=== PATIENT | female | born 1965 | race Caucasian/White ===

== ENCOUNTER → 2018-05-11 | Outpatient (CLI) | payer BC ==
--- NOTE | 2018-05-11 11:53 | XR ---
EXAMINATION TYPE: XR ankle limited LT DATE OF EXAM: 05/11/2018 COMPARISON: NONE HISTORY: Spontaneous rupture of flexor tendons TECHNIQUE: Three-view left ankle FINDINGS: Ankle mortise is intact as visualized. Secondary ossification centers are inferior to the m edial malleolus. There is a tiny ossification inferior to the lateral malleolus, likely an additional secondary ossification center. Avulsion is considered less likely. Soft tissues appear normal. No ac tejon fractures are evident. Calcaneal heel spurs are present. IMPRESSION: 1. No acute osseous abnormality radiographically apparent. If Additional evaluation of the tendons a nd ligaments would be of benefit, MRI can be performed.
--- NOTE | 2018-05-11 11:54 | XR ---
EXAMINATION TYPE: XR foot complete LT DATE OF EXAM: 05/11/2018 COMPARISON: NONE HISTORY: Check on Wednesday, pain TECHNIQUE: Three-view left foot FINDINGS: No acute fractures are evident. Joint spaces are preserved. Soft tissues appear normal. Jens caneal heel spurs are present. Follow-up exams can be performed 7-10 days from acute trauma for continued pain. IMPRESSION: 1. No acute osseous abnormality left foot.
== END | disposition home or self-care (01) ==
LOC: RADXRMAIN 09:36
PROVIDERS: ATTEND Podiatrist Foot Surgery
DX: M66.372 Spontaneous rupture of flexor tendons, left ankle and foot (principal); M79.672 Pain in left foot

== ENCOUNTER → 2020-04-10 | Outpatient (CLI) | payer BC ==
--- NOTE | 2020-04-10 08:58 | CT ---
EXAMINATION TYPE: CT brain wo con DATE OF EXAM: 04/10/2020 COMPARISON: NONE HISTORY: Headache and neck pain without injury. Episodes of syncope CT DLP: 1230 mGycm. Automated Exposure Control for Dose Reduction was Utilized. TECHNIQUE: CT scan of the head is performed without contrast. FINDINGS: There is no acute intracranial hemorrhage, mass effect, or midline shift identified. The re is diffuse ventricular and sulcal prominence consistent with diffuse age-related cerebral atrophy. Prominent perivascular spaces noted inferior to the right lentiform nucleus on image 23. The globes are intact and the visualized sinuses are clear. Brainstem, particularly the siena is limited by the dense skull base resultant spray artifact. IMPRESSION: No acute intracranial hemorrhage, mass effect, or midline shift is seen. If there is fur ther clinical concern MRI would be better suited to evaluate for white matter changes.
== END | disposition home or self-care (01) ==
LOC: RADCTMAIN 08:08
PROVIDERS: ATTEND Family Medicine
DX: R55 Syncope and collapse (principal)
CPT/HCPCS: 70450

== ENCOUNTER → 2020-05-22 | Outpatient (CLI) | payer BC ==
--- NOTE | 2020-05-22 12:36 | US ---
EXAMINATION TYPE: US carotid duplex BILAT DATE OF EXAM: 05/22/2020 COMPARISON: NONE CLINICAL HISTORY: Dizziness. EXAM MEASUREMENTS: RIGHT: Peak Systolic Velocity (PSV) cm/sec ----- Right CCA: 117.1 ----- Right ICA: 104.0 ----- Right ECA: 124.4 ICA/CCA ratio: 0.9 RIGHT: End Diastole cm/sec ----- Right CCA: 40.1 ----- Right ICA: 29.9 ----- Right ECA: 21.2 LEFT: Peak Systolic Velocity (PSV) cm/sec ----- Left CCA: 125.3 ----- Left ICA: 104.8 ----- Left ECA: 73.6 ICA/CCA ratio: 0.8 LEFT: End Diastole cm/sec ----- Left CCA: 43.0 ----- Left ICA: 35.4 ----- Left ECA: 21.9 VERTEBRALS (direction of flow): Right Vertebral: Antegrade Left Vertebral: Antegrade Rhythm: Normal IMPRESSION: Minimal amount of plaque visualized, no elevated velocities, no significant stenosis Criteria for Assigning % of Stenosis / Diameter reduction (Estimation based on the indirect measurements of the internal carotid artery velocities (ICA PSV). 1. Normal (no stenosis)=ICA PSV < 125 cm/s: ratio < 2.0: ICA EDV<40 cm/s. 2. Less than 50% stenosis=ICA PSV < 125 cm/s: ratio < 2.0: ICA EDV<40 cm/s. 3. 50 to 69% stenosis=ICA PSV of 125 to 230 cm/s: ration 2.0 ? 4.0: ICA EDV 40-100 cm/s. 4. Greater than 70% stenosis to near occlusion= ICA PSV > 230 cm/s: ratio > 4.0: ICA EDV > 100 cm/s. 5. Near occlusion= ICA PSV velocities may be low or undetectable: variable ratio and ICA EDV. 6. Total occlusion=unable to detect flow.
== END | disposition home or self-care (01) ==
LOC: RADUSWWP 12:09
PROVIDERS: ATTEND Psychiatry & Neurology Neurology
DX: R55 Syncope and collapse (principal)
CPT/HCPCS: 93880

== ENCOUNTER → 2022-03-12 | Outpatient (CLI) | payer BC ==
--- NOTE | 2022-03-13 13:38 | MM ---
Reason for exam: screening (asymptomatic). Last mammogram was performed 10 years and 9 months ago. History: Patient is postmenopausal and is nulliparous. Family history of premenopausal breast cancer in maternal grandmother at age 40. Physical Findings: A clinical breast exam by your physician is recommended on an annual basis and results should be correlated with mammographic findings. MG 3D Screening Mammo W/Cad Bilateral CC and MLO view(s) were taken. Prior study comparison: June 19, 2011, bilateral digital screening mammo w/CAD. March 21, 2008, bilateral digital screening mammogram. There are scattered fibroglandular densities. No significant changes when compared with prior studies. ASSESSMENT: Benign, BI-RAD 2 RECOMMENDATION: Routine screening mammogram of both breasts in 1 year.
== END | disposition home or self-care (01) ==
LOC: RADMAMWWP 07:49
PROVIDERS: ATTEND Family Medicine
DX: Z12.31 Encounter for screening mammogram for malignant neoplasm of breast (principal); Z80.3 Family history of malignant neoplasm of breast; Z78.0 Asymptomatic menopausal state
CPT/HCPCS: 77063; 77067

== ENCOUNTER 2024-03-10 07:19 | Inpatient (IN) | payer BC ==
[2024-03-10] MEDS ORDERED: NALOXONE 0.4 MG/ML 1 ML VIAL IV PRN (07:41)
[2024-03-10] MEDS: HEPARIN SODIUM 1,000 UN/ML (10ML VL) IV ONE (07:45)
[2024-03-10] MEDS: ASPIRIN 81 MG PO STA (07:46)
[2024-03-10] MEDS: SODIUM CHLORIDE 0.9% 1,000 ML IV STA (07:46)
[2024-03-10] MEDS: ATORVASTATIN 80 MG TAB PO STA (07:46)
[2024-03-10] MEDS: IV FLUID CONTINUATION 1,000 ML IV ONE (07:50)
--- NOTE | 2024-03-10 07:51 | ED ---
General Adult HPI - General Chief complaint: Chest Pain Stated complaint: Chest pains Time Seen by Provider: 03/10/24 07:26 Source: patient, RN notes reviewed, old records reviewed Mode of arrival: ambulatory Limitations: no limitations - History of Present Illness Initial comments: 58-year-old female presenting with central chest pain and pressure which began approximately 2 hours prior to arrival. Patient has history of hypertension, diabetes and is a current smoker. Pain radiates to her bilateral shoulders and upper back. She had an episode of nausea and vomiting. - Related Data Allergies Allergy/AdvReac Type Severity Reaction Status Date / Time No Known Allergies Allergy Verified 03/10/24 07:29 Review of Systems ROS Statement: Those systems with pertinent positive or pertinent negative responses have been documented in the HPI. ROS Other: All systems not noted in ROS Statement are negative. Past Medical History Past Medical History: Diabetes Mellitus, Hyperlipidemia, Hypertension Past Surgical History: No Surgical Hx Reported Past Psychological History: Depression Smoking Status: Current every day smoker Past Alcohol Use History: None Reported Past Drug Use History: None Reported General Exam Limitations: no limitations General appearance: alert, in no apparent distress Head exam: Present: atraumatic, normocephalic Eye exam: Present: normal appearance, PERRL ENT exam: Present: normal exam Neck exam: Present: normal inspection Respiratory exam: Present: normal lung sounds bilaterally. Absent: respiratory distress, wheezes Cardiovascular Exam: Present: regular rate, normal rhythm GI/Abdominal exam: Present: soft. Absent: distended, tenderness, guarding Neurological exam: Present: alert, oriented X3 Psychiatric exam: Present: anxious Skin exam: Present: diaphoretic, pallor Course Vital Signs 03/10/24 03/10/24 07:26 07:36 Temperature 98 F Pulse Rate 55 L Pulse Rate [ 56 L Cable Systems Installer ] Respiratory 18 Rate Blood Pressure 102/78 O2 Sat by Pulse 98 Oximetry Medical Decision Making - Medical Decision Making Was pt. sent in by a medical professional or institution (, PA, COMMERCIAL REPRESENTATIVE, urgent care, hospital, or [facility]...) When possible be specific @ -No Did you speak to anyone other than the patient for history (EMS, parent, family, police, friend...)? What history was obtained from this source @ -No Did you review nursing and triage notes (agree or disagree)? Why? @ -I reviewed and agree with nursing and triage notes Were old charts reviewed (outside hosp., previous admission, EMS record, old EKG, old radiological studies, urgent care reports/EKG's, [facility] records)? Report findings @ -No old charts were reviewed Differential Diagnosis differential Chest Pain: Stable Angina, Unstable Angina, STEMI, NSTEMI Aortic Dissection, Pneumothorax, Musculoskeletal, Esophageal Spasm GERD, Cholecystitis, Pancreatitis, Zoster, this is not meant to be an all-inclusive list. EKG interpreted by me (3pts min.). @EKG: Sinus rhythm rate of 60, CT interval 144, QRS duration 98, QTc 444, ST segment elevation in the inferior leads with reciprocal change in aVL and V2. X-rays interpreted by me (1pt min.). @ -None done CT interpreted by me (1pt min.). @ -None done U/S interpreted by me (1pt. min.). @ -None done What testing was considered but not performed or refused? (CT, X-rays, U/S, labs)? Why? @ -None What meds were considered but not given or refused? Why? @ -None Did you discuss the management of the patient with other professionals (professionals i.e. , PA, COMMERCIAL REPRESENTATIVE, lab, RT, psych nurse, social science instructor, test engineering manager, teacher, forest officer, case aide)? Give summary @ -Case discussed with Dr. Fulton covering for cardiology will take patient to Bank Teller Machine Mechanic with ST segment elevated [place]. Was smoking cessation discussed for >3mins.? @ -No Was critical care preformed (if so, how long)? @Yes, 35 minutes Were there social determinants of health that impacted care today? How? (Homelessness, low income, unemployed, alcoholism, drug addiction, transp ortation, low edu. Level, literacy, decrease access to med. care, alf, rehab)? @ -No Was there de-escalation of care discussed even if they declined (Discuss DNR or withdrawal of care, Hospice)? DNR status @ -No What co-morbidities impacted this encounter? (DM, HTN, Smoking, COPD, CAD, Cancer, CVA, ARF, Chemo, Hep., AIDS, mental health diagnosis, sleep apnea, morbid obesity)? @ -Hypertension, diabetes, current smoker Was patient admitted / discharged? Hospital course, mention meds given and route, prescriptions, significant lab abnormalities, going to OR and other pertinent info. @ -58-year-old female presenting with chest pain over the past 2 hours with typical features including nausea vomiting, diaphoresis, radiation. No prior history of CAD. Patient's EKG is consistent with acute AZ, ST segment elevation in the inferior leads with reciprocal change. Bank Teller Machine Mechanic was activated. Patient was given aspirin, heparin, Lipitor and 1 L fluid bolus in the emergency department. She was taken urgently to [facility] Teller Machine Mechanic for intervention. The admitting physician has been paged. Undiagnosed new problem with uncertain prognosis? @ -No Drug Therapy requiring intensive monitoring for toxicity (Heparin, Nitro, Insulin, Cardizem)? @ -No Were any procedures done? @ -No Diagnosis/symptom? @ ST segment elevated [place] Acute, or Chronic, or Acute on Chronic? @ -Acute Uncomplicated (without systemic symptoms) or Complicated (systemic symptoms)? @Complicated Side effects of treatment? @ -No Exacerbation, Progression, or Severe Exacerbation? @ -No Poses a threat to life or bodily function? How? (Chest pain, USA, AZ, pneumonia, PE, COPD, DKA, ARF, appy, cholecystitis, CVA, Diverticulitis, Homicidal, Suicidal, threat to staff... and all critical care pts) @ -[Yes, ACS Critical Care Time Critical Care Time: Yes Total Critical Care Time: 35 Disposition Clinical Impression: ST elevation myocardial infarction (STEMI) Disposition: ADMITTED IP TO THIS HOSP Condition: Serious Is patient prescribed a controlled substance at d/c from ED?: No Referrals: Latha Lundy MD [Primary Care Provider] - 1-2 days Time of Disposition: 07:42
[2024-03-10 08:00] LABS: Basophils % (A) 0 %; Eosinophils # (A) 0.1 k/uL (0-0.7); Eosinophils % (A) 1 %; HCT 52.5 % (34.0-46.0); HGB 17.2 gm/dL (11.4-16.0); Lymphocytes # (A) 3.1 k/uL (1.0-4.8); Lymphocytes % (A) 25 %; MCH 29.5 pg (25.0-35.0); MCHC 32.8 g/dL (31.0-37.0); Mean Platelet Volume 7.6; Monocytes # (A) 0.5 k/uL (0-1.0); Monocytes % (A) 4 %; Neutrophils # (A) 8.5 k/uL (1.3-7.7); Neutrophils % (A) 68 %; Platelet Count 334 k/uL (150-450); RBC 5.83 m/uL (3.80-5.40); RDW 13.5 % (11.5-15.5); WBC 12.6 k/uL (3.8-10.6)
[2024-03-10] MEDS: MIDAZOLAM 2 MG/2 ML VIAL IVP ONE (08:00)
[2024-03-10] MEDS: LIDOCAINE 1% INJ 10MG/ML (20 ML MDV) SQ ONE (08:03)
[2024-03-10] MEDS: VERAPAMIL SYRINGE (5 MG/10 ML) INTRAARTER ONE (08:04)
[2024-03-10] MEDS: HEPARIN SODIUM 1,000 UN/ML (10ML VL) IVP ONE (08:13)
[2024-03-10] MEDS: TICAGRELOR 90 MG TAB PO ONE (08:13)
[2024-03-10] MEDS ORDERED: TICAGRELOR 90 MG TAB ONE (08:13)
[2024-03-10 08:16] LABS: INR 0.9 (<1.2); Partial Thromboplastin Time 23.1 sec (22.0-30.0); Prothrombin Time 10.1 sec (10.0-12.5)
[2024-03-10 08:17] LABS: ALT 36 U/L (4-34); AST 37 U/L (14-36); African American GFR (CKD) >90 (>60 ml/min/1.73 sqM); Albumin 4.3 g/dL (3.5-5.0); Alkaline Phosphatase 111 U/L (38-126); Anion Gap 8 mmol/L; Blood Urea Nitrogen 17 mg/dL (7-17); Calcium 9.5 mg/dL (8.4-10.2); Carbon Dioxide 27 mmol/L (22-30); Chloride 105 mmol/L (98-107); Glucose 151 mg/dL (74-99); Magnesium 1.8 mg/dL (1.6-2.3); Non-African American GFR(CKD) 85 (>60 ml/min/1.73 sqM); Potassium 3.9 mmol/L (3.5-5.1); Sodium 140 mmol/L (137-145); Total Bilirubin 0.7 mg/dL (0.2-1.3); Total Protein 7.3 g/dL (6.3-8.2)
[2024-03-10] MEDS: NITROGLYCERIN 1000MCG/10ML SYRINGE INTRACORON ONE (08:21)
[2024-03-10] MEDS: PHENYLEPHRINE-0.9% NACL SYG 1,000 MCG/10 ML SYRINGE IVP ONE (08:30)
[2024-03-10] MEDS: IOPAMIDOL-370 100ML BTL INJ ONE (08:33)
[2024-03-10] MEDS ORDERED: RX INFO: IV CONTRAST WAS GIVEN 1 EACH MISC MISCELLANE PRN (08:39)
[2024-03-10] MEDS ORDERED: ATROPINE SULFATE 0.1 MG/ML 10ML SYRINGE IV PRN (08:39)
[2024-03-10] MEDS ORDERED: NITROGLYCERIN SL TABS 0.4 MG TAB SUBLINGUAL PRN (08:39)
[2024-03-10] MEDS ORDERED: MAG HYDROX/AL HYDROX/SIMETH 30 ML CUP PO PRN (08:39)
[2024-03-10] MEDS ORDERED: ZOLPIDEM 5 MG TAB PO PRN (08:39)
--- NOTE | 2024-03-10 08:45 | P.PCN ---
Date of Procedure: 03/10/24 Operative Findings: CARDIAC CATHETERIZATION AND PERCUTANEOUS CORONARY INTERVENTION PERFORMING PHYSICIAN: Nathanael Fulton MD, VI PROCEDURE PERFORMED: 1. Selective right and left coronary angiogram 2. Left heart catheterization 3. Successful stenting of mid RCA using 3.5 x 38 mm Xience ARCHIE with an excel lent angiographic results with adjunctive use of intravascular imaging 4. Ultrasound-guided access of the right radial artery INDICATION: Acute inferior ST elevation myocardial infarction COMPLICATION: None APPROACH: Right radial artery LEVEL OF SEDATION: Moderate with the sedation time off 38 minutes PROCEDURE DESCRIPTION: After obtaining informed consent the patient was brought to the cardiac Hull And Deck Remover. The right radial artery was cannulated using micropuncture technique under ultrasound guidance and micropuncture wire passed easily then I placed a 6 Egyptian 11 cm sheath at the right radial artery. Subsequently anticoagulation was initiated using heparin with continuous ACT monitoring. Selective left and right coronary angiogram performed using JL 3.5 diagnostic catheter and JR4 g uiding catheter. After that I did intervene on the right coronary artery. I did left heart catheterization using a pigtail catheter. At that point we decided to intervene on the RCA. The RCA was wired using a run-through wire. It was dilated using 3.5 mm balloon. Subsequently I did intravascular ultrasound which showed a diameter distally about 3.5 and proximal about 4.0 with a soft plaque. I deployed 3.5 x 38 mm stent and subsequently postdilated using 4 mm noncompliant balloon after intravascular ultrasound performed. Final angiogram showed excellent angiographic results and the proce dure was completed with no complication SELECTIVE CORONARY ANGIOGRAM: The right coronary artery: Large-caliber vessel and a dominant vessel and subtotally occluded in the midportion with a plaque rupture and thrombus formation Left main: Is angiographically normal with bifurcates into an LCx and LAD The left circumflex: Large-caliber vessel and a codominant vessel. The LCx is angiographically normal. Gives rise into first and second obtuse marginal branches and distally gives PDA as well The left anterior descending artery: The LAD is a large-caliber vessel. The LAD has mild disease only. Gives rise into multiple diagonal branches appear to be angiographically normal HEMODYNAMICS: The LVEDP was 15 mmHg with no significant gradient across aortic valve CONCLUSION: Acute subtotal occlusion of the mid RCA secondary to plaque rupture. I did perform successful stenting of the RCA as described above Mild disease involving the left coronary system Normal left-sided filling pressure POSTPROCEDURE MANAGEMENT: 1. Dual antiplatelet therapy using aspirin and Brilinta for 12 month 2. Aggressive cholesterol control 3. Follow-up with the patient
--- NOTE | 2024-03-10 08:47 | P.CRDCN ---
History of Present Illness Consult date: 03/10/24 Chief complaint: Chest pain History of present illness: The patient is a 58-year-old female patient with a past medical history significant for overweight and borderline diabetes and hypertension and dyslipidemia and smoking presented to the emergency department with chest discomfort started within the last 12 hours. The discomfort was in the middle of the chest as a pressure/dull feeling with no radiation. It was associated with shortness of breath and sweating. She presented to the emergency department where an EKG was performed and showed an acute inferior ST deviation myocardial infarction. Subsequently she underwent an emergent heart catheterization and that revealed mild disease involving the left coronary system was plaque rupture involving the mid RCA. She underwent successful stenting of the RCA. By the end of the procedure the ST changes resolved and the patient was chest pain-free which she was hemodynamically stable which she tolerated the procedure very well. She will be admitted to the intensive care unit. She will be on dual antiplatelet therapy along with high intensity statin along with beta-mary. We will obtain an echocardiogram to assess ejection fraction. Examination reveals stable vital signs with soft blood pressure overall and clear breathing sounds bilaterally and regular rate and rhythm with a soft systolic murmur and somewhat distant heart sounds and no lower extremities edema was noted Assessment Acute inferior ST ovation myocardial infarction Status post PCI of the RCA Multiple comorbid conditions including borderline diabetes and hypertension and dyslipidemia and smoking Plan Continue the current medical regimen including dual antiplatelet therapy Smoking cessation Obtain an echocardiogram with Doppler ICU monitoring Further recommendation to follow Past Medical History Past Medical History: Diabetes Mellitus, Hyperlipidemia, Hypertension Past Surgical History: No Surgical Hx Reported Past Psychological History: Depression Smoking Status: Current every day smoker Past Alcohol Use History: None Reported Past Drug Use History: None Reported Medications and Allergies Allergies Allergy/AdvReac Type Severity Reaction Status Date / Time No Known Allergies Allergy Verified 03/10/24 07:29 Physical Exam Vitals: Vital Signs Temp Pulse Pulse Resp BP Pulse Ox 03/10/24 07:36 56 L 03/10/24 07:26 98 F 55 L 18 102/78 98 Intake and Output 03/09/24 03/10/24 03/10/24 22:59 06:59 14:59 Intake Total 400 Balance 400 Intake: IV 400 Other: Weight 106.594 kg Results 03/10/24 07:48 03/10/24 07:48 Cardiac Enzymes 03/10/24 03/10/24 Range/Units 07:48 07:48 AST 37 H (14-36) U/L Troponin I 0.278 H* (0.000-0.034) ng/mL Coagulation 03/10/24 Range/Units 07:48 PT 10.1 (10.0-12.5) sec APTT 23.1 (22.0-30.0) sec CBC 03/10/24 Range/Units 07:48 WBC 12.6 H (3.8-10.6) k/uL RBC 5.83 H (3.80-5.40) m/uL Hgb 17.2 H (11.4-16.0) gm/dL Hct 52.5 H (34.0-46.0) % Plt Count 334 (150-450) k/uL Comprehensive Metabolic Panel 03/10/24 Range/Units 07:48 Sodium 140 (137-145) mmol/L Potassium 3.9 (3.5-5.1) mmol/L Chloride 105 (98-107) mmol/L Carbon Dioxide 27 (22-30) mmol/L BUN 17 (7-17) mg/dL Creatinine 0.77 (0.52-1.04) mg/dL Glucose 151 H (74-99) mg/dL Calcium 9.5 (8.4-10.2) mg/dL AST 37 H (14-36) U/L ALT 36 H (4-34) U/L Alkaline Phosphatase 111 (38-126) U/L Total Protein 7.3 (6.3-8.2) g/dL Albumin 4.3 (3.5-5.0) g/dL Current Medications Generic Name Dose Route Start Last Admin Trade Name Freq PRN Reason Stop Dose Admin Al Hydroxide/Mg Hydroxide 30 ml 03/10/24 08:39 Mag Hydrox/Al Hydrox/Simeth 30 Ml Cup PO Q4HR PRN Heartburn Aspirin 81 mg 03/10/24 09:00 Aspirin 81 Mg PO DAILY BOO Atorvastatin Calcium 80 mg 03/10/24 21:00 Atorvastatin 80 Mg Tab PO HS BOO Atropine Sulfate 0.5 mg 03/10/24 08:39 Atropine Sulfate 0.1 Mg/Ml 10ml Syringe IV ONCE PRN Symptomatic Bradycardia Sodium Chloride 1,000 ml/ IV 1,000 mls @ 75 mls/hr 03/10/24 08:45 Solution IV 03/10/24 13:46 .[id number] [facility] Metoprolol Tartrate 25 mg 03/10/24 09:00 Metoprolol Tartrate 25 Mg Tab PO BID [facility] Miscellaneous Information 1 each 03/10/24 08:39 Rx Info: Iv Contrast Was Given 1 Each Misc MISCELLANE 03/12/24 08:39 DAILY PRN Per Protocol Naloxone HCl 0.2 mg 03/10/24 07:41 Naloxone 0.4 Mg/Ml 1 Ml Vial IV Q2M PRN Opioid Reversal Nitroglycerin 0.4 mg 03/10/24 08:39 Nitroglycerin Sl Tabs 0.4 Mg Tab SUBLINGUAL Q5M PRN Chest Pain Ticagrelor 90 mg 03/10/24 09:00 Ticagrelor 90 Mg Tab PO BID [facility] Protocol Zolpidem Tartrate 5 mg 03/10/24 08:39 Zolpidem 5 Mg Tab PO HS PRN Insomnia Intake and Output 03/09/24 03/10/24 03/10/24 22:59 06:59 14:59 Intake Total 400 Balance 400 Intake: IV 400 Other: Weight 106.594 kg Patient Weight 03/11/24 06:59 Weight 106.594 kg 03/10/24 07:48 03/10/24 07:48
[2024-03-10] MEDS: TICAGRELOR 90 MG TAB PO SCH (08:49)
[2024-03-10] MEDS: ASPIRIN 81 MG PO SCH (10:04)
[2024-03-10] MEDS: SODIUM CHLORIDE 0.9% 1,000 ML in EMPTY BAG 1 BAG IV SCH (10:04)
[2024-03-10] MEDS: METOPROLOL TARTRATE 25 MG TAB PO SCH (10:09)
[2024-03-10] MEDS ORDERED: ALPRAZolam 0.5 MG TAB PO PRN (11:26)
[2024-03-10] MEDS ORDERED: DEXTROSE 50% SYRINGE 50 ML IVP PRN ×2 (11:26)
[2024-03-10] MEDS: busPIRone HCl 5 MG TAB PO SCH (12:15)
[2024-03-10] MEDS: PANTOPRAZOLE 40 MG TABLET PO SCH (12:15)
[2024-03-10] MEDS: VORTIOXETINE HYDROBROMIDE 20 MG TABLET PO SCH (12:15)
[2024-03-10 12:27] LABS: Glucose,Whole Blood 199 mg/dL (70-110)
[2024-03-10] MEDS: INSULIN ASPART (NovoLOG) 100 UNIT/ML VIAL SQ SCH (12:33)
--- NOTE | 2024-03-10 12:54 | HP ---
HISTORY AND PHYSICAL CHIEF COMPLAINT: Chest pain. HISTORY OF PRESENT ILLNESS: This is a 58-year-old woman with a past medical history of hypertension, diabetes, was admitted with chest pain this morning. The patient was found to have hyperacute inferior wall myocardial infarction, patient underwent cardiac catheterization and stenting of the RCA. There is no history of any fever, rigors, or chills. The patient is closely monitored in ICU. A 2D echo has been done. The patient is on dual antiplatelet treatment. There is no history of any fever, rigors, or chills. PAST MEDICAL HISTORY: Reviewed include diabetes mellitus, hypertension, hyperlipidemia, rest of the history and rest of the chart is also reviewed. HOME MEDICATIONS: BuSpar, doses and rest of medications reviewed. ALLERGIES: None. FAMILY HISTORY: No history of heart disease or strokes in the family. SOCIAL HISTORY: Current smoking. No history of alcohol intake. REVIEW OF SYSTEMS: A 14-point review is negative except as mentioned. PHYSICAL EXAMINATION: VITAL SIGNS: Pulse is 81, blood pressure 142/101, respirations 11. HEENT: Conjunctivae normal. NECK: No jugular venous distention. CARDIOVASCULAR: S1, S2. RESPIRATIONS: Diminished at the basis. No rhonchi, no crackles. ABDOMEN: Soft, nontender. LEGS: No edema, no swelling SKIN: No ulcer, rash, bleeding. JOINTS: No active deforming arthropathy. LABS: Complete 12.6, hemoglobin 17.2. Troponin 0.278. ASSESSMENT: 1. Hyperacute inferior wall myocardial infarction, status post cardiac arrest and stenting of the RCA. 2. Troponin 0.278. 3. Increased WBC. 4. Diabetes mellitus type 2. 5. Hypertension. 6. Hyperlipidemia. 7. History of nicotine dependence. 8. Polycythemia. RECOMMENDATIONS: This 58-year-old woman presented with multiple complex medical issues, we will monitor the patient closely. I will recommend continue the current medications. The patient is started on beta blockers, otherwise, Lipitor, dual antiplatelet treatment. DVT prophylaxis. Closely follow with Cardiology. Guarded prognosis because of multiple complex medical issues. We will resume the home medications. Monitor blood sugars also closely. Further recommendations to follow. MMODL / IJN: [id number] /
--- NOTE | 2024-03-10 12:59 | XR ---
EXAMINATION TYPE: XR chest 1V portable DATE OF EXAM: 03/10/2024 COMPARISON: None INDICATION: CHF TECHNIQUE: Single frontal view of the chest is obtained. FINDINGS: The heart size is normal. The pulmonary vasculature is normal. The lungs are clear. IMPRESSION: 1. No acute pulmonary process.
[2024-03-10 16:07] LABS: Appearance,Urine Clear (Clear); Bilirubin,Urine Negative (Negative); Blood,Urine Negative (Negative); Color,Urine Colorless; Glucose,Urine (UA) Negative (Negative); Ketones,Urine Negative (Negative); Leukocyte Esterase,Urine Negative (Negative); Nitrite,Urine Negative (Negative); Protein,Urine Negative (Negative); Urobilinogen,Urine <2.0 mg/dL (<2.0)
[2024-03-10 16:56] LABS: Glucose,Whole Blood 127 mg/dL (70-110)
--- NOTE | 2024-03-10 17:36 | CA ---
Transthoracic Echo Report Name: Sofi Stinson Age: 58 Gender: F : 1965 Exam Date: 03/10/2024 11:54 Exam Location: [place] [facility] Ht (in): 64 Wt (lb): 235 Ordering Physician: Nathanael Fulton MD ([id number]) Attending/Referring Phys: Regional Operations Director Rosa M Cee RCS Procedure CPT: Indications: stemi Cardiac Hx: Technical Quality: Technically difficult study Contrast 1: Definity Total Dose (mL): 2 Contrast 2: Total Dose (mL): MEASUREMENTS (Male / Female) Normal Values 2D ECHO LV Diastolic Diameter PLAX 4.7 cm 4.2 - 5.9 / 3.9 - 5.3 cm LV Systolic Diameter PLAX 3.4 cm IVS Diastolic Thickness 0.9 cm 0.6 - 1.0 / 0.6 - 0.9 cm LVPW Diastolic Thickness 1.0 cm 0.6 - 1.0 / 0.6 - 0.9 cm LV Relative Wall Thickness 0.4 RV Internal Dim ED PLAX 2.5 cm LVOT Diameter 2.1 cm LV Diastolic Volume MOD BP 93.2 cm??? 67 - 155 / 56 - 104 cm??? LV Systolic Volume MOD BP 30.3 cm??? 22 - 58 / 19 - 49 cm??? LV Ejection Fraction MOD BP 67.5 % >= 55 % LV Cardiac Index MOD BP 2405.8 cm???/min???m??? LV Diastolic Volume MOD 4C 108.6 cm??? LV Systolic Volume MOD 4C 35.6 cm??? LV Ejection Fraction MOD 4C 67.2 % LV Cardiac Index MOD 4C 2791.6 cm???/min???m??? LV Diastolic Length 4C 8.0 cm LV Systolic Length 4C 6.4 cm LV Diastolic Volume MOD 2C 80.4 cm??? LV Systolic Volume MOD 2C 24.9 cm??? LV Ejection Fraction MOD 2C 69.1 % LV Cardiac Index MOD 2C 2122.6 cm???/min???m??? LV Diastolic Length 2C 8.0 cm LV Systolic Length 2C 6.0 cm LA Volume 42.2 cm??? 18 - 58 / 22 - 52 cm??? LA Volume Index 18.8 cm???/m??? 16 - 28 cm???/m??? DOPPLER AV Peak Velocity 131.8 cm/s AV Peak Gradient 7.0 mmHg AV Mean Velocity 95.8 cm/s AV Mean Gradient 4.0 mmHg AV Velocity Time Integral 29.7 cm LVOT Peak Velocity 98.5 cm/s LVOT Peak Gradient 3.9 mmHg LVOT Velocity Time Integral 21.4 cm LVOT Stroke Volume 74.7 cm??? LVOT Stroke Volume Index 35.7 ml/m??? LVOT Cardiac Index 2856.9 cm???/min???m??? AV Area Cont Eq vti 2.5 cm??? AV Area Cont Eq pk 2.6 cm??? MV Area PHT 4.4 cm??? Mitral E Point Velocity 90.3 cm/s Mitral A Point Velocity 77.0 cm/s Mitral E to A Ratio 1.2 MV Deceleration Time 173.9 ms PV Peak Velocity 79.6 cm/s PV Peak Gradient 2.5 mmHg FINDINGS Left Ventricle Left ventricular ejection fraction is estimated at 60-65 %. Mildly increased posterior wall thickness. Left ventricular cavity size normal. Left ventricular wall thickness normal. No obvious regional wall motion abnormalities. Right Ventricle Normal right ventricular size and function. Unable to estimate the right ventricular systolic pressure. Right Atrium Normal right atrial size. Left Atrium Normal left atrial size. Mitral Valve Structurally normal mitral valve. No evidence for mitral valve prolapse. No mitral stenosis. Trace mitral regurgitation. Aortic Valve Aortic valve not well visualized. No aortic stenosis. No aortic regurgitation. Tricuspid Valve Structurally normal tricuspid valve. No tricuspid stenosis. No tricuspid regurgitation. Pulmonic Valve Pulmonic valve not well visualized. No pulmonic stenosis. No pulmonic regurgitation. Pericardium No pericardial effusion. Aorta Normal size aortic root and proximal ascending aorta. CONCLUSIONS Normal LV function Previewed by: Dr. Sammy Ward MD (Electronically Signed) Final Date: 10 March 2024 17:36
[2024-03-10 20:03] LABS: Glucose,Whole Blood 124 mg/dL (70-110)
[2024-03-10] MEDS: ATORVASTATIN 80 MG TAB PO SCH (20:12)
[2024-03-10] MEDS ORDERED: ATORVASTATIN 10 MG TAB PO SCH (21:00)
[2024-03-11 04:02] LABS: Basophils % (A) 1 %; Eosinophils # (A) 0.1 k/uL (0-0.7); Eosinophils % (A) 1 %; HCT 48.9 % (34.0-46.0); HGB 15.3 gm/dL (11.4-16.0); Lymphocytes % (A) 34 %; MCH 28.4 pg (25.0-35.0); MCHC 31.3 g/dL (31.0-37.0); MCV 90.7 fL (80.0-100.0); Mean Platelet Volume 7.4; Monocytes # (A) 0.5 k/uL (0-1.0); Monocytes % (A) 6 %; Neutrophils % (A) 56 %; Platelet Count 248 k/uL (150-450); RBC 5.39 m/uL (3.80-5.40); RDW 13.3 % (11.5-15.5); WBC 8.9 k/uL (3.8-10.6)
[2024-03-11 04:18] LABS: African American GFR (CKD) >90 (>60 ml/min/1.73 sqM); Anion Gap 8 mmol/L; Blood Urea Nitrogen 14 mg/dL (7-17); Carbon Dioxide 23 mmol/L (22-30); Chloride 107 mmol/L (98-107); Glucose 109 mg/dL (74-99); Non-African American GFR(CKD) >90 (>60 ml/min/1.73 sqM); Potassium 3.9 mmol/L (3.5-5.1); Sodium 138 mmol/L (137-145)
--- NOTE | 2024-03-11 08:58 | P.PN ---
Subjective Progress Note Date: 03/11/24 Principal diagnosis: STEMI The patient is a 58-year-old female patient with a past medical history significant for overweight and borderline diabetes and hypertension and dyslipid emia and smoking presented to the emergency department with chest discomfort started within the last 12 hours. The discomfort was in the middle of the chest as a pressure/dull feeling with no radiation. It was associated with shortness of breath and sweating. She presented to the emergency department where an EKG was performed and showed an acute inferior ST deviation myocardial infarction. Subsequently she underwent an emergent heart catheterization and that revealed mild disease involving the left coronary system was plaque rupture involving the mid RCA. She underwent successful stenting of the RCA. By the end of the procedure the ST changes resolved and the patient was chest pain-free which she was hemodynamically stable which she tolerated the procedure very well. She will be admitted to the intensive care unit. She will be on dual antiplatelet therapy along with high intensity statin along with beta-mary. We will obtain an echocardiogram to assess ejection fraction. Examination reveals stable vital signs with soft blood pressure overall and clear breathing sounds bilaterally and regular rate and rhythm with a soft systolic murmur and somewhat distant heart sounds and no lower extremities edema was noted March 11, 2024 The patient was seen and evaluated this morning. She is asymptomatic from a cardiac standpoint of view. She is hemodynamically stable as well. She is on dual antiplatelet therapy along with high intensity statin along with beta- mary. The echo revealed normal LV systolic function with no significant valvular abnormalities. Cardiac standpoint of view the patient can be transferred to the third floor for possible discharge home tomorrow. Meanwhile continue the current medical regimen. Continue monitoring for any arrhythmia. The examination reveals regular rhythm with a clear breathing sounds bilaterally and no edema was noted and she has good right radial pulse Assessment Acute inferior ST ovation myocardial infarction Status post PCI of the RCA Multiple comorbid conditions including borderline diabetes and hypertension and dyslipidemia and smoking Plan Continue the current medical regimen including dual antiplatelet therapy Smoking cessation The echo revealed normal LV systolic function. The patient can be transferred to the third floor Possible discharge in the next 24 hours Objective - Vital Signs Vital signs: Vital Signs Temp 98 F 03/11/24 04:00 Pulse 94 03/11/24 07:00 Resp 17 03/11/24 07:00 BP 123/81 03/11/24 07:00 Pulse Ox 95 04/20/24 07:00 FiO2 Intake & Output 04/19/24 04/20/24 04/20/24 18:59 06:59 18:59 Intake Total 1150 75 Output Total 1510 800 550 Balance -360 -405 -550 Weight 106.594 kg 110 kg Intake: IV 1150 75 Sodium Chloride 0.9% 1, 750 75 000 ml In Empty Bag 1 bag @ 75 mls/hr IV .[id number] [facility] Rx#:[id number] Output: Urine 1510 800 550 - Labs CBC & Chem 7: 03/11/24 03:32 03/11/24 03:32 Labs: Abnormal Lab Results - Last 24 Hours (Table) 03/10/24 03/10/24 03/10/24 Range/Units 12:26 16:55 20:01 Hct (34.0-46.0) % Glucose (74-99) mg/dL POC Glucose (mg/dL) 199 H 127 H 124 H (70-110) mg/dL 03/11/24 03/11/24 Range/Units 03:32 03:32 Hct 48.9 H (34.0-46.0) % Glucose 109 H (74-99) mg/dL POC Glucose (mg/dL) (70-110) mg/dL
[2024-03-11 11:48] VITALS: BMI 41.6
[2024-03-11 11:53] LABS: Glucose,Whole Blood 103 mg/dL (70-110)
--- NOTE | 2024-03-11 13:57 | PN ---
PROGRESS NOTE DATE OF SERVICE: 03/11/2024 SUBJECTIVE: This is a 58-year-old woman who was admitted with hyperacute inferior wall myocardial infarction, underwent cardiac catheterization and stenting. The patient is on hyperlipidemic agent and dual antiplatelet treatment. Cardiology is following the patient closely. The patient is monitored in ICU. The patient is smoking previously. PAST MEDICAL HISTORY: Reviewed. REVIEW OF SYSTEMS: A 14-point review is negative except as mentioned earlier. CURRENT MEDICATIONS: Reviewed include Lipitor, doses and rest of medications noted. PHYSICAL EXAMINATION: VITAL SIGNS: Pulse 101, blood pressure 111/70, respirations 20. HEENT: Conjunctivae normal. NECK: No jugular venous distention. CARDIOVASCULAR: S1, S2. RESPIRATIONS: Diminished at the bases. ABDOMEN: Soft, nontender. LEGS: No edema. NERVOUS SYSTEM: Nonfocal. LABORATORY DATA: Reviewed. ASSESSMENT: 1. Hyperacute inferior wall myocardial infarction, status post cardiac cath and stenting of the RCA. 2. Troponin 0.278. 3. Increased WBC. 4. Diabetes mellitus, type 2. 5. Hypertension. 6. Hyperlipidemia. 7. History of nicotine dependence. 8. Polycythemia. RECOMMENDATIONS: Recommended to continue current management, continue symptomatic treatment. Otherwise at this time, I would recommend repeat labs. Smoking cessation recommendation has been given. Continue with antiplatelet. Follow closely with Cardiology. Possible discharge in the next 24 hours. Further recommendations to follow. MMODL / IJN: [id number] /
[2024-03-11 17:07] LABS: Glucose,Whole Blood 92 mg/dL (70-110)
[2024-03-11 20:10] LABS: Glucose,Whole Blood 163 mg/dL (70-110)
[2024-03-12 06:11] LABS: Glucose,Whole Blood 98 mg/dL (70-110)
[2024-03-12 08:27] VITALS: RESP 16; TEMP 97.7
[2024-03-12 11:35] LABS: Glucose,Whole Blood 135 mg/dL (70-110)
[2024-03-12 12:17] VITALS: BP 126/84; PULSE 73
--- NOTE | 2024-03-12 12:37 | P.PN ---
Subjective Progress Note Date: 03/12/24 Principal diagnosis: STEMI The patient is a 58-year-old female patient with a past medical history significant for overweight and borderline diabetes and hypertension and dyslipid emia and smoking presented to the emergency department with chest discomfort started within the last 12 hours. The discomfort was in the middle of the chest as a pressure/dull feeling with no radiation. It was associated with shortness of breath and sweating. She presented to the emergency department where an EKG was performed and showed an acute inferior ST deviation myocardial infarction. Subsequently she underwent an emergent heart catheterization and that revealed mild disease involving the left coronary system was plaque rupture involving the mid RCA. She underwent successful stenting of the RCA. By the end of the procedure the ST changes resolved and the patient was chest pain-free which she was hemodynamically stable which she tolerated the procedure very well. She will be admitted to the intensive care unit. She will be on dual antiplatelet therapy along with high intensity statin along with beta-mary. We will obtain an echocardiogram to assess ejection fraction. Examination reveals stable vital signs with soft blood pressure overall and clear breathing sounds bilaterally and regular rate and rhythm with a soft systolic murmur and somewhat distant heart sounds and no lower extremities edema was noted March 11, 2024 The patient was seen and evaluated this morning. She is asymptomatic from a cardiac standpoint of view. She is hemodynamically stable as well. She is on dual antiplatelet therapy along with high intensity statin along with beta- mary. The echo revealed normal LV systolic function with no significant valvular abnormalities. Cardiac standpoint of view the patient can be transferred to the third floor for possible discharge home tomorrow. Meanwhile continue the current medical regimen. Continue monitoring for any arrhythmia. The examination reveals regular rhythm with a clear breathing sounds bilaterally and no edema was noted and she has good right radial pulse March 12, 2024 The patient was seen and evaluated this morning which she is doing well from a cardiovascular standpoint of view and she is asymptomatic and hemodynamically stable which she continues to be on dual antiplatelet therapy along with beta- mary and high intensity statin. The examination showed regular rhythm with a clear breathing sounds bilaterally and no edema was noted. The echo showed normal LV systolic function. Assessment Acute inferior ST ovation myocardial infarction Status post PCI of the RCA Multiple comorbid conditions including borderline diabetes and hypertension and dyslipidemia and smoking Plan Continue the current medical regimen including dual antiplatelet therapy Smoking cessation The echo revealed normal LV systolic function. The patient can be transferred to the third floor The patient can be discharged Objective - Vital Signs Vital signs: Vital Signs Temp 97.7 F 03/12/24 08:00 Pulse 73 03/12/24 11:49 Resp 16 03/12/24 11:49 BP 126/84 03/12/24 11:49 Pulse Ox 98 03/12/24 11:49 FiO2 Intake & Output 03/11/24 03/12/24 03/12/24 18:59 06:59 18:59 Intake Total 0 Output Total 550 Balance -550 0 Weight 110 kg Intake: Oral 0 Output: Urine 550 Other: # Voids 2 3 - Labs CBC & Chem 7: 03/11/24 03:32 03/11/24 03:32 Labs: Abnormal Lab Results - Last 24 Hours (Table) 03/11/24 03/12/24 Range/Units 20:09 11:35 POC Glucose (mg/dL) 163 H 135 H (70-110) mg/dL
--- NOTE | 2024-03-13 00:59 | DS ---
DISCHARGE SUMMARY FINAL DIAGNOSES: 1. Hyperacute inferior wall myocardial infarction, status post cardiac stenting of the RCA. 2. Troponin 0.278. 3. Increased WBC, improved. 4. Diabetes mellitus type 2. 5. Hypertension. 6. Hyperlipidemia. 7. History of nicotine dependence. 8. Polycythemia. DISCHARGE DISPOSITION: The patient will be discharged in stable condition after cardiac clearance. HISTORY OF PRESENT ILLNESS: This 58-year-old woman was admitted with acute inferior wall myocardial respiration and cardiac arrest and stenting per Cardiology, improved significantly. OBJECTIVE: VITAL SIGNS: Stable. CARDIOVASCULAR: S1, S2. ABDOMEN: Soft. NERVOUS SYSTEM: No focal deficits. Smoke cessation has been advised. So, the patient will be discharged home with the following medications. MEDICATIONS: Resume the home medications, 1. Lipitor 80 mg q.h.s. 2. Aspirin 81 mg daily. 3. Brilinta 90 mg p.o. b.i.d. 4. Lopressor 25 mg p.o. b.i.d. 5. Habitrol 14 daily. Please refer to the medication sheet for list of medications. FOLLOWUP: With Dr. Fulton in 1 week. Follow up with Dr. Latha Lundy in 1 to 2 days. Follow up with primary physician in 1 to 2 days. MMODL / IJN: [id number] /
== END 2024-03-12 14:05 | disposition home or self-care (01) | DRG 322 ==
LOC: EC 07:19 → 2SICU 07:41 → EC 07:50 → 2SICU 08:50 → 3SCARD 03-11 15:36
PROVIDERS: ADMIT Hospitalist; ATTEND Hospitalist
PROC: B240ZZ3 Ultrasonography of Single Coronary Artery, Intravascular (ICD-10-PCS; principal; 2024-03-10 07:42)
PROC: 4A023N7 Measurement of Cardiac Sampling and Pressure, Left Heart, Percutaneous Approach (ICD-10-PCS; principal; 2024-03-10 07:42)
PROC: 027034Z Dilation of Coronary Artery, One Artery with Drug-eluting Intraluminal Device, Percutaneous Approach (ICD-10-PCS; principal; 2024-03-10 07:42)
PROC: B2111ZZ Fluoroscopy of Multiple Coronary Arteries using Low Osmolar Contrast (ICD-10-PCS; principal; 2024-03-10 07:42)
DX: I21.19 ST elevation (STEMI) myocardial infarction involving other coronary artery of inferior wall (principal); I10 Essential (primary) hypertension; I25.10 Atherosclerotic heart disease of native coronary artery without angina pectoris; F17.200 Nicotine dependence, unspecified, uncomplicated; E78.5 Hyperlipidemia, unspecified; E11.9 Type 2 diabetes mellitus without complications; D75.1 Secondary polycythemia; F32.A Depression, unspecified; Z71.6 Tobacco abuse counseling; Z79.899 Other long term (current) drug therapy
CPT/HCPCS: 36415; 71045; 76937; 80048; 80053; 81003; 83036; 83735; 84484; 85025; 85610; 85730; 92978; 93306; 93458; 96374; 99291